=== PATIENT | female | born 1995 | race Caucasian/White ===

== ENCOUNTER 2022-07-24 12:41 | Emergency (ER) | payer OTHER, BC | END 2022-07-24 15:43 | disposition home or self-care (01) | LOC: JP.ED 12:41 | DX: S00.81XA Abrasion of other part of head, initial encounter (principal); Z87.891 Personal history of nicotine dependence; V49.40XA Driver injured in collision with unspecified motor vehicles in traffic accident, initial encounter; Y92.410 Unspecified street and highway as the place of occurrence of the external cause | CPT/HCPCS: 99283 ==